=== PATIENT | female | born 1950 | race Asian ===

== ENCOUNTER 2020-12-07 12:05 | Outpatient (CLI) | payer MEDICARE, SELFPAY ==
--- NOTE | 2020-12-07 12:16 | USCV_ITS ---
Arnol Messina Age: 70 Gender: F : 1950 Exam Date: 12/07/2020 12:42 Ordering Phys: Zuleyma Norwood Technologist: Marbella Membreno Exam Location: [facility] [place] Indication: HTN BP: 176 / 73 HR: 63 Rhythm: Sinus Technical Quality: Good MEASUREMENTS (Male / Female) Normal Values 2D ECHO LV Diastolic Diameter PLAX 5.2 cm 4.2 - 5.9 / 3.9 - 5.3 cm LV Systolic Diameter PLAX 3.4 cm LV Chamber Size 3.8 cm IVS Diastolic Thickness 0.8 cm 0.6 - 1.0 / 0.6 - 0.9 cm IVS Systolic Thickness 1.6 cm LVPW Diastolic Thickness 0.9 cm 0.6 - 1.0 / 0.6 - 0.9 cm LVPW Systolic Thickness 1.4 cm RV Chamber Size 2.8 cm LVOT Diameter 2.0 cm LV Ejection Fraction 2D Teich 63.5 % LV Ejection Fraction MOD 2C 53.4 % LV Ejection Fraction 2C AL 57.2 % LA Diameter 3.9 cm LA Width 3.7 cm LA Height 5.6 cm RA Width 2.9 cm RA Height 4.5 cm Aorta at Sinotubular Diameter 2.8 cm M-MODE LV Diastolic Diameter MM 6.0 cm 4.2 - 5.9 / 3.9 - 5.3 cm LV Systolic Diameter MM 3.9 cm LV Ejection Fraction MM Teich 63.1 % IVS Diastolic Thickness MM 0.8 cm 0.6 - 1.0 / 0.6 - 0.9 cm IVS Systolic Thickness MM 1.2 cm LVPW Diastolic Thickness MM 1.1 cm 0.6 - 1.0 / 0.6 - 0.9 cm LVPW Systolic Thickness MM 1.5 cm Aortic Annulus Diameter 3.0 cm LA Ao Ratio MM 1.4 MV E Point Septal Separation 0.3 cm DOPPLER AV Peak Velocity 150.0 cm/s LVOT Peak Velocity 111.0 cm/s AV Area Cont Eq vti 2.3 cm squared AV Area Cont Eq pk 2.3 cm squared MV Area PHT 3.7 cm squared Mitral E to A Ratio 1.1 MV E' Velocity 46.5 cm/s Mitral E to MV E' Ratio 6.2 Mitral E to LV E' Lateral Ratio 6.7 Mitral E to LV E' Septal Ratio 5.8 TV Peak E Velocity 53.0 cm/s Right Atrial Pressure 3.0 mmHg PV Peak Velocity 104.0 cm/s RV Acceleration Time 0.1 s RV Ejection Time 0.3 s RV AcT/ET 0.4 FINDINGS Left Ventricle Normal left ventricular size and systolic function, EF 64 %. No regional wall motion abnormalities. Right Ventricle Normal right ventricular size and systolic function. Right Atrium Normal right atrial size. Left Atrium Mildly increased left atrial size. Mitral Valve Trace mitral valve regurgitation. Aortic Valve No gross abnormalities noted Tricuspid Valve No gross abnormalities noted Pulmonic Valve No gross abnormalities noted Pericardium No pericardial effusion. Aorta Normal aortic annulus size. CONCLUSIONS Normal left ventricular size and systolic function, EF 64 %. No regional wall motion abnormalities. Mildly increased left atrial size. Trace mitral valve regurgitation. There is no pericardial effusion. There are no intracardiac masses. No previous study is available for comparison. Dr Remedios Butler MD FACC (Electronically Signed) Final Date: 07 December 2020 17:19 S
== END 2020-12-07 12:06 | disposition home or self-care (01) ==
LOC: RAD 12:14
PROVIDERS: Visit Provider Registered Nurse
DX: R00.2 Palpitations (principal); I10 Essential (primary) hypertension; I34.0 Nonrheumatic mitral (valve) insufficiency
CPT/HCPCS: 93306

== ENCOUNTER 2022-03-02 16:10 | Outpatient (CLI) | payer MEDICARE, SELFPAY ==
--- NOTE | 2022-03-02 16:35 | XR_ITS ---
WS: [id number] XR knee LT 3V* [id number] REASON FOR EXAM: PAIN AND SWELLING OF LEFT KNEE FINDINGS: Moderate narrowing of the medial knee joint space with subchondral sclerosis. The lateral joint space is intact and well preserved. Mild lateral shift and mild lateral angulation of the patella. Mild narrowing of the patellofemoral j oint space with subchondral sclerosis and small marginal osteophytes. No soft tissue abnormality. It is noted that there is calcification in the menisci in the contralater al right knee. On the lateral view there is a calcification in the anterior aspect of the joint that potentially could represent meniscal calcification. XR/XR knee LT 3V* [id number] IMPRESSION: Osteoarthritis like arthropathy. Meniscal calcification is usually the result o f CPPD which develops an osteoarthritis like arthropathy.
== END 2022-03-02 16:11 | disposition home or self-care (01) ==
PROVIDERS: Visit Provider Nurse Practitioner Family
DX: M25.562 Pain in left knee (principal); M25.462 Effusion, left knee
CPT/HCPCS: 73562

== ENCOUNTER → 2022-04-05 09:56 | Outpatient (BNVA) | payer MEDICARE, SELFPAY | PROVIDERS: Referring Provider Nurse Practitioner Family; Visit Provider Orthopaedic Surgery | DX: M17.12 Unilateral primary osteoarthritis, left knee (principal) | CPT/HCPCS: 99203 ==

== ENCOUNTER 2022-08-02 13:29 | Outpatient (CLI) | payer MEDICARE, SELFPAY ==
--- NOTE | 2022-08-02 13:35 | MM_ITS ---
WS: [id number] BILATERAL 3D TOMOSYNTHESIS DIGITAL SCREENING MAMMOGRAPHY WITH CAD CLINICAL INFORMATION: SCREENING HISTORY: Screening mammogram. No current complaints. COMPARISON: None. TECHNIQUE: Bilateral CC and MLO views. FINDINGS: The breasts are composed of heterogeneous fibroglandular density tissue, which can limit the detectio n of small underlying mass lesions. No suspicious mass, asymmetry, calcifications, or architectural d istortion. No evidence of malignancy. A few tiny punctate calcifications. MM/[place] [id number] IMPRESSION: BI-RADS: 2-Benign FOLLOW UP: 1 Year Follow-up Recommend return to annual screening mammography.
== END 2022-08-02 13:30 | disposition home or self-care (01) ==
LOC: RAD 13:30
PROVIDERS: PCP Nurse Practitioner Family; Visit Provider Nurse Practitioner Family
DX: Z12.31 Encounter for screening mammogram for malignant neoplasm of breast (principal)
CPT/HCPCS: 77063; 77067

== ENCOUNTER → 2023-03-12 08:31 | Outpatient (BNVA) | payer MEDICARE, SELFPAY | PROVIDERS: PCP Nurse Practitioner Family; Referring Provider Nurse Practitioner Family; Visit Provider Otolaryngology | DX: H91.90 Unspecified hearing loss, unspecified ear (principal); H93.13 Tinnitus, bilateral; M26.623 Arthralgia of bilateral temporomandibular joint | CPT/HCPCS: 99203 ==

== ENCOUNTER → 2023-04-03 14:37 | Outpatient (BNVA) | payer MEDICARE, SELFPAY | PROVIDERS: PCP Nurse Practitioner Family; Referring Provider Nurse Practitioner Family; Visit Provider Nurse Practitioner Family | DX: L82.0 Inflamed seborrheic keratosis (principal) | CPT/HCPCS: 17110; 99204 ==

== ENCOUNTER 2024-06-18 12:35 | Outpatient (CLI) | payer MEDICARE, SELFPAY ==
--- NOTE | 2024-06-18 12:48 | US_ITS ---
WS: [id number] RENAL ULTRASOUND URINARY BLADDER ULTRASOUND HISTORY: HX OF CYSTIC KIDNEY DISEASE COMPARISON: 07/15/2014 TECHNIQUE: 2-D and color Doppler imaging of the kidney submitted. Right kidney: 9.4 cm x 4.2 cm x 4.6 cm. Kidney remains normal size. No hydronephrosis or solid mass identified. No cortical thinning. Cortex measures 1.1 cm. Left kidney: 9.8 cm x 3.6 cm x 3.8 cm. Normal size kidney. No hydronephrosis. Simple cyst in the superior pole measures 3.5 x 3.6 x 3.8 cm. Cyst has increased in size since the prior ultrasound. There is an additional cyst in the mid kidney measuring 5.3 x 4.6 x 6.2 cm which is also slightly increased in size. No new cyst. Normal renal radha ex at 1.1 cm. Aorta: Mild atherosclerosis aorta. No aneurysm. Urinary Bladder: Normal distention. Prevoid volume: 276 mL. Post void volume: 55 mL. US/US renal BI with PV bladder IMPRESSION: 1. No solid renal mass or hydronephrosis. 2. Simple LEFT renal cysts. The cysts have increased in size since the prior s tudy of 2013. 3. Minimal post void urinary bladder residual.
== END 2024-06-18 12:36 | disposition home or self-care (01) ==
LOC: RAD 12:37
PROVIDERS: PCP Nurse Practitioner Family; Visit Provider Nurse Practitioner Family
DX: Q61.02 Congenital multiple renal cysts (principal); Z87.448 Personal history of other diseases of urinary system
CPT/HCPCS: 76770; 76857

== ENCOUNTER 2024-06-20 08:45 | Outpatient (CLI) | payer MEDICARE, SELFPAY ==
--- NOTE | 2024-06-20 09:24 | US_ITS ---
WS: [id number] Complete ABDOMINAL ULTRASOUND HISTORY: LOWER ABD PAIN COMPARISON: 07/15/2014 abdomen ultrasound Liver: 12.0 cm in length. Normal size liver and echogenicity. No bile duct dilatation or mass. Portal Vein: Normal hepatopetal flow with monophasic waveform. Gallbladder: Normally distended gallbladder with no stones or wall thickening. CBD: 0.4 cm Pancreas: Atrophic thin pancreas. No pancreatic duct dilatation. The very distal tail is partially ob scured. Right kidney: 9.9 cm x 5.6 x 4.5 cm. Cortex:1.0 cm. Normal size and echogenicity. No hydronephrosis or mass. Left kidney: 10.0 cm x 3.9 cm x 4.2 cm. Cortex: 1.1 cm. No hydronephrosis or solid mass. Reidentified is a simple cyst in the superior pole measuring 3.9 x 3 .4 x 3.9 cm. No solid component and there is good through transmission. There is an additional cyst i n the mid kidney measuring 5.2 x 4.9 x 5.0 cm. There is through transmission with no solid component. Cysts have slightly increased in size since 2013. Spleen: 7.7 cm. Normal size and echogenicity. Aorta and IVC: Unremarkable abdominal aorta and IVC. US/US abdomen complete* [id number] Impression: 1. Normal gallbladder. 2. LEFT renal cyst x2. These are simple renal cysts with no solid component. C ysts have slightly increased in size since 2013. 3. Atrophic pancreas. 4. No ascites.
--- NOTE | 2024-06-20 09:25 | US_ITS ---
WS: [id number] US transvaginal [id number] HISTORY: PELVIC PAIN COMPARISON: None available. Uterus: 5.9 cm x 3.8 cm x 1.6 cm. Mildly atrophic anteverted uterus. Uterine size is slightly small but appropriate for patient's age a s expected. No fibroid. Cervix is normal. Endometrium: 0.3 cm. There is a small amount of fluid along the endometrial cavity. This fluid is sim ple and tapers towards the lower endometrium. Endometrium is atrophic. Right ovary: 1.9 cm x 2.4 cm x 2.4 cm. Normal size RIGHT ovary. The RIGHT ovary contains an anechoic mass measuring 1.9 x 1.7 x 2.1 cm. There is through transmission and this is consistent with a cyst. Normal vascularity within the adjacent ovary. Left ovary: 1.6 cm x 1.5 cm x 1.1 cm. Normal size and vascularity, no cystic or solid masses. There is a small amount of free fluid in the cul-de-sac. US/US transvaginal [id number] IMPRESSION: 1. Atrophic endometrium. No endometrial mass. 2. Fluid along the endometrium tapers towards the endocervical junction. Suspe ct component of mild cervical stenosis. 3. O-RADS 2; RIGHT ovarian cyst. A cyst of this size in a postmenopausal patie nt is almost certainly benign as designated by O-RADS 2 designation. 4. Small amount of simple free fluid in the cul-de-sac.
== END 2024-06-20 08:46 | disposition home or self-care (01) ==
PROVIDERS: PCP Nurse Practitioner Family; Visit Provider Nurse Practitioner Family
DX: N83.201 Unspecified ovarian cyst, right side (principal); N85.8 Other specified noninflammatory disorders of uterus; Q61.02 Congenital multiple renal cysts; K86.89 Other specified diseases of pancreas
CPT/HCPCS: 76700; 76830

== ENCOUNTER 2024-06-28 23:23 | Emergency (ER) | payer MEDICARE, SELFPAY ==
[2024-06-28 23:33] VITALS: BP 194/76; PULSE 77; RESP 17; TEMP 36.7; O2SAT 99; BMI 21.1
--- NOTE | 2024-06-29 00:24 | XRR_ITS ---
PROCEDURE INFORMATION: Exam: XR Right Knee Exam date and time: 06/29/2024 12:54 AM Age: 74 years old Clinical indication: Right; Patient HX: Patient fell and landed directly on RT knee last night. C/O worsening pain with swelling. ; Additional info: Fall TECHNIQUE: Imaging protocol: Radiologic exam of the right knee. Views: 3 views. COMPARISON: No relevant prior studies available. FINDINGS: Bones/joints: Meniscal chondrocalcinosis. Moderate joint effusion. Soft tissues: Normal. XR/XR knee RT 3V* [id number] IMPRESSION: 1. Negative for fracture or dislocation, consider further evaluation with a CT scan if concern for fracture remains clinically. 2. Meniscal chondrocalcinosis. 3. Moderate joint effusion.
[2024-06-29] MEDS: dexamethasone 10 mg/mL INJ 8 MG PO (02:50)
[2024-06-29 02:51] VITALS: BP 132/75; PULSE 78; O2SAT 97
--- NOTE | 2024-06-29 03:40 | W.ED.FALL ---
HPI - Fall General: Chief Complaint: Fall Stated Complaint: Right leg pain Time Seen by Provider: 06/29/24 01:51 History of Present Illness: 74-year-old female who fell at [employer] yesterday afternoon, landing on her anterior right knee. She had pain at that time, but it was not excruciating. She did have trouble getting up, and went to her car. She drove home, but after she got home, she noticed the pain steadily increased, particularly with deep knee bending, trying to get off the toilet, etc. She can bear weight but is exceptionally painful. She noticed that her knee was swollen as well. No redness or heat. Related Data Home Medications Medication Instructions Recorded Confirmed losartan 100 mg tablet ea PO 03/12/23 03/12/23 Previous Rx's Medication Instructions Recorded methylprednisolone 4 mg tablets in See Rx Instructions PO .COMPLEX 06/29/24 a dose pack (Medrol (Marcos)) #21 ea Allergies Allergy/AdvReac Type Severity Reaction Status Date / Time No Known Allergies Allergy Verified 03/12/23 09:10 [facility] PFSH: Medical History High cholesterol Hypertension Surgical History Hx of section Social History Smoking and tobacco/nicotine status: never used tobacco/nicotine Physical Exam Const: COMMON NORMALS: no acute distress GENERAL APPEARANCE: cooperative; not ill appearing and not frail appearing HENMT: COMMON NORMALS: normocephalic, atraumatic and Normal external nose present HEAD & SCALP: normocephalic and atraumatic FACE & SINUS: normal facial exam and face symmetric NOSE: Normal external nose present Eye: COMMON NORMALS: Equal, round and reactive pupils present and EOMs intact bilaterally PUPIL: Yes Equal, round and reactive pupils present Neck/C-Spine: GENERAL: Yes trachea midline Chest: CHEST: Yes Symmetrical chest wall rise Resp: COMMON NORMALS: normal respiratory effort, No retractions and No use of accessory muscles Cardio: COMMON NORMALS: regular rate and regular rhythm RATE: regular rate RHYTHM: regular rhythm Extremity: NARRATIVE EXTREMITY EXAM: Examination of the right lower extremity reveals a significant knee joint effusion. There is tenderness anteriorly and along the medial joint line. There is no deformity. No significant redness or warmth. There is a small abrasion willi on the inferior lateral side of the knee Neuro: YARON COMA SCALE: document GCS findings Melrude coma scale eye opening: Spontaneous Melrude coma scale verbal response: Orientated Yaron coma scale motor response: Obey commands Yaron coma scale total score: 15 SENSORY EXAM: Yes extremities (intact) Psych: COMMON NORMALS: speech normal SPEECH: Yes normal speech Skin: COMMON NORMALS: no rashes or lesions noted GENERAL SKIN EXAM: no rashes or lesions noted Course Vital Signs: Vital signs: Vital Signs Temperature 98.0 F 06/28/24 23:33 Pulse Rate 78 06/29/24 02:51 Respiratory Rate 17 06/28/24 23:33 Blood Pressure 132/75 06/29/24 02:51 Pulse Oximetry 97 06/29/24 02:51 Oxygen Delivery Me thod Room Air 06/28/24 23:33 MDM - Fall Medical Decision Making Patient has a significant knee effusion on examination, and on x-ray. There is no fracture. Bedside ultrasound reveals compressible femoral and popliteal veins, with good flow. No evidence of DVT. She is given a dose of dexamethasone here for the knee joint effusion. She will take a Medrol Dosepak. She may take Tylenol or ibuprofen otherwise, as she wishes not to have pain medication. Crutches were offered, but declined. She can picker / packer a walker at [facility] on Sunday. She knows to return for worsening problems Lab Data Radiology Impressions Knee X-Ray 06/29/24 00:24 IMPRESSION: 1. Negative for fracture or dislocation, consider further evaluation with a CT scan if concern for fracture remains clinically. 2. Meniscal chondrocalcinosis. 3. Moderate joint effusion. All radiology interpretation(s) finalized by discharge Discharge Plan Discharge Patient Disposition: Home Clinical Impression: Contusion of knee, right, Effusion of knee joint right Condition: Stable Prescriptions: New methylprednisolone [Medrol (Marcos)] 4 mg tablets,dose pack See Rx Instructions .ROUTE .COMPLEX Qty: 21 0RF Rx Instructions: orally per package directions No Action losartan 100 mg tablet PO Discharge Orders: Discharge ED (Routine); Ordered 06/29/24 Ordered By: Kyle Wilder Other Ambulatory Orders: DME: Walker (Order) Location: None Selected Ordered By: Kyle Wilder Referrals: Jamir Lira PA [Physician Accounts Payable Supervisor] - 4-7 days Brionna Tavares FNP [Primary Care Provider] - Patient Instructions: Swollen Knee Joint (ED), Knee Pain (ED), Opioid Safety, Pain Management Activity Restrictions/Additional Instructions: Ice your knee, this will help with pain and swelling, particular for the next 48 hours. You may get your walker tomorrow at [facility] across the street from the hospital. This will help you ambulate. Use the knee immobilizer for ambulation or walking for the next 2 to 3 days, and try to work your way out of it after that for weightbearing. Call orthopedics at the number above on Sunday morning, and ask for an appointment for your knee joint effusion/swelling. Return for redness, further swelling to the leg, warmth, fever, other concerning symptoms. Coding Level of Care Code ED Training And Development Specialist for Nathan Elaine
== END 2024-06-29 02:53 | disposition home or self-care (01) ==
PROVIDERS: Emergency Provider Emergency Medicine; PCP Nurse Practitioner Family
DX: S80.01XA Contusion of right knee, initial encounter (principal); W19.XXXA Unspecified fall, initial encounter; M25.461 Effusion, right knee
CPT/HCPCS: 29530; 73562; 99283; J1100

== ENCOUNTER → 2024-07-03 09:40 | Outpatient (BNVA) | payer MEDICARE, SELFPAY | PROVIDERS: PCP Nurse Practitioner Family; Visit Provider Student in an Organized Health Care Education/Training Program | DX: M25.461 Effusion, right knee (principal); S80.01XA Contusion of right knee, initial encounter; W19.XXXA Unspecified fall, initial encounter | CPT/HCPCS: 73560; 73565; 99213 ==